=== PATIENT | male | born 1965 | race Caucasian/White ===

== ENCOUNTER 2023-12-25 15:44 | Observation (INO) | payer OTHER, SELFPAY ==
[2023-12-25] VITALS (23 sets, daily range): BP systolic 80–141; BP diastolic 57–129; PULSE 130–142; RESP 29–35; TEMP 37.8–38.4; O2SAT 71–100; BMI 27.4
--- NOTE | ~2023-12-25 | CT_ITS ---
EXAMINATION: CT brain wo con DATE: 12/25/2023 16:19 INDICATION: Altered mental status. TECHNIQUE: Computed tomography (CT) of the head was performed without intravenous contrast. The mA wa s adjusted according to patient size. Iterative reconstruction technique was employed. The dose-lengt h product was 605.33 mGy-cm. COMPARISON: None FINDINGS: There is an isodense subdural hematoma superior to right frontal lobe with maximum thicknes s of 8 mm. There is a left frontotemporal parietal subdural hematoma that is mixed hypodense and isod ense to cervantes matter with maximum thickness of 15 mm. There is mixed low-attenuation and high attenuat ion in inferior left frontal lobe, likely a hemorrhagic contusion. There is 4 mm rightward midline sh ift. There is no acute ischemic infarct or abnormal mass lesion. The ventricles are normal in size. T here is material in the paranasal sinuses. There are erosions and periosteal reaction involving the l eft ethmoid sinuses. The left otomastoid effusion. There is severe osteoarthritis of left temporomand ibular joint. There is periosteal reaction of left mandibular ramus with adjacent soft tissue attenua tion. IMPRESSION: 1. Bilateral subdural hematomas, which may be subacute. 2. Hemorrhagic contusion in inferior left frontal lobe. 3. Periosteal reaction involving left mandibular ramus suspicious for osteomyelitis or less likely ma lignancy. Consider a maxillofacial CT. 4. Left otomastoid effusion. 5. Sinusitis, likely chronic. Reviewed, dictated and finalized at location A. IMPRESSION: 1. Bilateral subdural hematomas, which may be subacute. 2. Hemorrhagic contusion in inferior left frontal lobe. 3. Periosteal reaction involving left mandibular ramus suspicious for osteomyel itis or less likely malignancy. Consider a maxillofacial CT. 4. Left otomastoid effusion. 5. Sinusitis, likely chronic.
--- NOTE | ~2023-12-25 | XR_ITS ---
EXAMINATION: XR chest 1V DATE: 12/25/2023 16:20 INDICATION: Altered mental status. TECHNIQUE: A single frontal view of the chest was obtained. COMPARISON: None. FINDINGS: There is a diffuse interstitial pattern in the lungs. There are airspace opacities in the r ight mid and lower lung zones and all left lung zones. No pleural effusion or pneumothorax. The heart is normal. There is widespread sclerosis of the bones. IMPRESSION: 1. Diffuse lung disease, consistent with pulmonary edema versus pneumonia. 2. Widespread sclerosis of the bones, consistent with metastatic disease. Reviewed, dictated and finalized at location A.
--- NOTE | 2023-12-25 15:55 | ECG_ITS ---
Test Date: 2023-12-25 15:51:40 Measurements Intervals [place] Rate: 141 P: 15 VA: 117 QRS: 3 QRSD: 86 T: 41 QT: 328 QTc: 503 Interpretive Statements SINUS TACHYCARDIA NONSPECIFIC T-WAVE ABNORMALITY ABNORMAL RHYTHM ECG No previous ECG available for comparison Electronically Signed On 12-26-2023 13:11:10 CDT by Ravindra Sweet M.D.
--- NOTE | 2023-12-25 16:00 | ED.GENADULT ---
HPI - General Adult General Chief complaint: Altered Mental Status Stated complaint: AMS Time Seen by Provider: 12/25/23 15:47 History of Present Illness HPI narrative: Patient is a 58-year-old male who presents ER from [facility] in [place] with history of metastatic prostate cancer and history of chronic subdural hemorrhage on the left that has new altered mental status according to EMS. Patient is tachycardic in the 140s. Mouth is very dry. He is attempting to speaking communicate but does not make sense. Left eye does not move and pupil is dilated. There are notes from rehab that showed this may be a chronic issue. No evidence of trauma to the head. No history of trauma. Patient is a full code according to paperwork. According to healthcare POA patient add finished chemotherapy in April, his PSA then markedly elevated in October. He is in found down and is home with unknown down time in late October. He then was hospitalized at [facility]. He then went [facility] before going to his current alf. Patient has known widespread metastatic disease. He is not currently getting any treatments. Related Data Home Medications Medication Instructions Recorded Confirmed acetaminophen 325 mg tablet 650 mg PO QID PRN unknown 11/29/23 11/29/23 lidocaine 4 % topical patch 2 patch topical DAILY PRN unknown 11/29/23 11/29/23 (Aspercreme (lidocaine)) losartan 25 mg tablet 25 mg PO DAILY 11/29/23 11/29/23 prednisone 10 mg tablet 10 mg PO DAILY 11/29/23 11/29/23 sennosides 8.6 mg-docusate sodium 1 tablet PO BID PRN Constipation 11/29/23 11/29/23 50 mg tablet (Senna with Docusate Sodium) Allergies Allergy/AdvReac Type Severity Reaction Status Date / Time No Known Allergies Allergy Verified 11/30/23 08:17 Review of Systems Review of Systems: ROS unobtainable: Yes unobtainable due to medical condition PMFSH Past Medical History Medical History Anemia Bowel and bladder incontinence Cervical osteophyte HTN (hypertension) 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 HEAD: Normocephalic, atraumatic. EYES: Extraocular movements intact in the right eye. No room in the left eye. Dilated pupil on left that is unreactive to light or accommodation. Normal pupil activity on the right. ENT: Dry mucous membranes NECK: Supple. CHEST: Clear to auscultation. No respiratory distress. HEART: tachycardic and regular. Normal peripheral pulses. ABDOMEN: Soft, nontender, nondistended, normal active bowel sounds. EXTREMITIES: Normal range of motion. 1+ edema. SKIN: Warm, dry, no rash. NEURO: Awake alert, follows commands, not oriented. Course Course Emergency Course: I have spoken with Gabriella the patients healthcare POA. I have discussed the seriousness of the patient's illness. We discussed the abnormal CT scan which shows subdural hemorrhages are subacute and possibly bigger than what he had had at [place] 1 month ago. She does not want any intervention to be performed on these. Additionally we discussed the possibly of pneumonia given the fever and hypoxia, we have talked about the significant anemia that he has. She does no
[2023-12-25 16:14] LABS: Mean Corpuscular HGB Conc 30.4 g/dl (32-36); Mean Corpuscular Hemoglobin 27.4 pg (26-34); Mean Corpuscular Volume 90.3 fl (80-100); Mean Platelet Volume 10.7 fl (7.4-10.4); Platelet Count Result 104 k/mm3 (150-375); Red Blood Count 1.86 M/mm3 (4.6-6.20); Red Cell Distribution Width 19.3 % (11.5-14.5); White Blood Count 9.6 K/mm3 (4.5-10.0)
[2023-12-25 16:25] LABS: Alanine Aminotransferase 18 U/L (6-50); Anion Gap 11 mmol/L (4-12); Aspartate Amino Transferase 200 U/L (17-59); Bilirubin,Total 1.3 mg/dL (0.2-1.3); Blood Urea Nitrogen 22 mg/dL (9-20); Calcium 7.4 mg/dL (8.4-10.2); Carbon Dioxide 27 mmol/L (22-30); Chloride 93 mmol/L (98-107); Estimated CRCL calculation 129 ml/min; Estimated Glomerular Filt Rate > 60; Glucose 108 mg/dL (65-110); INR 1.3; Potassium 3.6 mmol/L (3.4-5.0); Prothrombin Time 16.8 Seconds (11.1-14.7); Sodium 131 mmol/L (137-145)
[2023-12-25 16:29] LABS: Lactic Acid Reflex 4.2 mmol/L (0.7-2.0)
[2023-12-25] MEDS: SODIUM CHLORIDE 0.9% IV 2,700 ML/1,000 ML BAG 999 ML IV CONT ×3 (16:35→19:54)
[2023-12-25 16:38] LABS: Hemoglobin 5.1 g/dL (14.0-18.0)
[2023-12-25 16:39] LABS: Alkaline Phosphatase 1290 U/L (38-126); Hematocrit 16.8 % (42.0-52.0)
[2023-12-25 16:46] LABS: Band Neutrophils Percent 2 % (0-6); Eosinophils Absolute Manual 0.19 K/mm3 (0.02-0.50); Eosinophils Percent Manual 2 % (0-4); Lymphocytes Absolute Manual 2.88 K/mm3 (1.1-4.5); Monocytes Absolute Manual 0.67 K/mm3 (0.1-0.90); Monocytes Percent Manual 7 % (3-9); Neutrophils Absolute Manual 5.85 K/mm3 (1.3-6.7); Neutrophils Percent Manual 59 % (46-73); Total Cells Counted 100
[2023-12-25 16:47] LABS: Anisocytosis 2+; Platelet Estimate Decreased (Adequate); Schistocytes None Seen
[2023-12-25 16:48] LABS: Hypochromasia 1+
[2023-12-25 16:56] LABS: Influenza A QL RT-PCR Negative (Negative); Influenza B QL RT-PCR Negative (Negative); RSV RNA, RT-PCR Negative (Negative); SARS-CoV-2 RNA PCR Negative (Negative)
[2023-12-25 17:38] LABS: CRP > 45.0 mg/dL (<1.0)
--- NOTE | 2023-12-25 17:43 | PCCCNOTE ---
Spoke with pt and family present in ED(Mishel Nunez) concerning hospice; also called Gabriella Ruiz who lives out of town but is POA, All in agreement that they would like to explore hospice. [facility] contacted at [phone] and awaiting call back.
--- NOTE | 2023-12-25 18:10 | PC.NURSE ---
multiple attempts have been made with no success at obtaining blood cultures. currently an ultrasound certified RN is at bedside attempting to draw blood cultures so antibiotics can be started.
[2023-12-25 18:26] LABS: Add Urine Microscopic? YES; Appearance Urine Clear (Clear); Bacteria Urine None Seen /hpf; Bilirubin Urine Negative (Negative); Blood Urine Trace (Negative); Color Urine Yellow (Yellow); Glucose Urine UA Negative (Negative); Ketones Urine Negative (Negative); Leukocyte Esterase Ur Negative LEU/UL (Negative); Nitrate Urine Negative (Negative); Protein Urine Trace mg/dL (Negative); RBC Urine 0-2 /hpf (0-2); Specific Grav Ur 1.018 (1.001-1.035); Squamous Epithelial Cell Urine Occasional /hpf (Few); WBC Urine 0-5 /hpf (0-3); pH Urine 5.5 (5.0-9.0)
--- NOTE | 2023-12-25 18:26 | PCCCNOTE ---
Spoke with [facility], paperwork faxed, [employer] salesperson indicated that they would try to get nurse here to evaluate for gip status. They will contact POA for signature.
[2023-12-25 19:13] LABS: Reflex Lactic Acid Yes or No Add Lactic
[2023-12-25] MEDS: AZITHROMYCIN 500 MG/NS 250 ML 500 MG/250 ML BAG 250 MG IVPB (19:41)
[2023-12-25 20:24] LABS: Lactic Acid 3.6 mmol/L (0.7-2.0)
--- NOTE | 2023-12-25 20:38 | PC.NURSE ---
Placed a call out to the on-call RN for [facility] for update.
--- NOTE | 2023-12-25 20:50 | PC.NURSE ---
Per Doyle at [place], consents will likely take overnight to get in from POA. May be best to admit pt overnight to arrange Hospice in am.
--- NOTE | 2023-12-25 20:58 | PM.IMHP ---
H&P: HPI History of Present Illness Date/Time: 12/25/23 20:58 Chief Complaint: ams Narrative: This is a 58-year-old male with past medical history significant for end-stage prostate cancer, subdural hematoma, fall, patient was brought today for evaluation due to altered mental status. Patient found to have him or a contusion in the inferior left frontal lobe, bilateral subdural hematomas on CT imaging of the head. Decision has been made to place the patient in hospice care in the meantime patient has been admitted for comfort care. EXAMINATION: CT brain wo con DATE: 12/25/2023 16:19 INDICATION: Altered mental status. TECHNIQUE: Computed tomography (CT) of the head was performed without intravenous contrast. The mA was adjusted according to patient size. Iterative reconstruction technique was employed. The dose-length product was 605.33 mGy-cm. COMPARISON: None FINDINGS: There is an isodense subdural hematoma superior to right frontal lobe with maximum thickness of 8 mm. There is a left frontotemporal parietal subdural hematoma that is mixed hypodense and isodense to cervantes matter with maximum thickness of 15 mm. There is mixed low-attenuation and high attenuation in inferior left frontal lobe, likely a hemorrhagic contusion. There is 4 mm rightward midline shift. There is no acute ischemic infarct or abnormal mass lesion. The ventricles are normal in size. There is material in the paranasal sinuses. There are erosions and periosteal reaction involving the left ethmoid sinuses. The left otomastoid effusion. 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 There is periosteal reaction of left mandibular ramus with adjacent soft tissue attenuation. IMPRESSION: 1. Bilateral subdural hematomas, which may be subacute. 2. Hemorrhagic contusion in inferior left frontal lobe. 3. Periosteal reaction involving left mandibular ramus suspicious for osteomyelitis or less likely malignancy. Consider a maxillofacial CT. 4. Left otomastoid effusion. 5. Sinusitis, likely chronic. EXAMINATION: XR chest 1V DATE: 12/25/2023 16:20 INDICATION: Altered mental status. TECHNIQUE: A single frontal view of the chest was obtained. COMPARISON: None. FINDINGS: There is a diffuse interstitial pattern in the lungs. There are airspace opacities in the right mid and lower lung zones and all left lung zones. No pleural effusion or pneumothorax. The heart is normal. There is widespread sclerosis of the bones. IMPRESSION: 1. Diffuse lung disease, consistent with pulmonary edema versus pneumonia. 2. Widespread sclerosis of the bones, consistent with metastatic disease. 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 Social History Social History Years smoked: 25 Smoking status: Former smoker Smoking end date: 04/29/08 Alcohol intake: unknown Substance use: unknown Do You Feel Safe in your Home?: Yes Lack of Transportation: No Lack of Food: Never True Current Housing: I Have Housing Concerned About Future Housing: No Difficulty Paying Gas/Electric Bills: No Difficulty Paying for Meds: No Currently Unemployed: YES Education: High School Diploma/GED Difficulty w/ Childcare or Family Care: No Spiritual care concerns: No Meds Home Medications and Allergies Home Medications Medication Instructions Recorded Confirmed Type acetaminophen 325 mg tablet 650 mg PO QID PRN unknown 11/29/23 11/29/23 History lidocaine 4 % topical patch 2 patch topical DAILY PRN unknown 11/29/23 11/29/23 History (Aspercreme (lidocaine)) losartan 25 mg tablet 25 mg P
--- NOTE | 2023-12-25 22:16 | PC.NURSE ---
Pt arrived to room 328 via stretcher from ER
[2023-12-25] MEDS: LACTATED RINGERS 1,000 ML 125 ML IV CONT (23:01)
[2023-12-26] VITALS: PULSE 130; RESP 26; O2SAT 100
[2023-12-26] MEDS: LACTATED RINGERS 1,000 ML 125 ML IV CONT (06:24)
[2023-12-26 07:45] VITALS: O2SAT 94
[2023-12-26 08:00] VITALS: BP 115/60; PULSE 126; RESP 22; TEMP 36.9; O2SAT 100
--- NOTE | 2023-12-26 10:02 | PM.IMPN ---
Progress Note: A&P Assessment and Plan (1) Subdural hemorrhage: Code(s): I62.00 - Nontraumatic subdural hemorrhage, unspecified Status: Acute Assessment and Plan: comfort care measures only (2) Prostate cancer metastatic to bone: Code(s): C61 - Malignant neoplasm of prostate; C79.51 - Secondary malignant neoplasm of bone Status: Acute Assessment and Plan: Comfort care measures only hospice care (3) Traumatic subarachnoid hematoma with loss of consciousness: Code(s): S06.6X9A - Traumatic subarachnoid hemorrhage with loss of consciousness of unspecified duration, initial encounter Status: Acute Assessment and Plan: comfort care Plan will decrease IV fluids from 125 to 25 to avoid fluid overload. Time Spent With Patient Time with patient: Greater than 35 minutes Subjective Date/time seen: 12/26/23 10:02 Interval history: ams Narrative retrieved from H/P: This is a 58-year-old male with past medical history significant for end-stage prostate cancer, subdural hematoma, fall, patient was brought today for evaluation due to altered mental status. Patient found to have him or a contusion in the inferior left frontal lobe, bilateral subdural hematomas on CT imaging of the head. Decision has been made to place the patient in hospice care in the meantime patient has been admitted for comfort care. 12/25- care coordination consult for hospice added- as based on ed note- family had been discussing it. Iv fluids and antibiotics are ok with family- so those will be continued at this time. pt is seen and examined- not much interactions- pt is very drowsy. RR a lot slower than it wa sper niece and pt looks more comfortable. Review of Systems Review of Systems: ROS unobtainable: Yes unobtainable due to mental status Exam Narrative: lying in stretcher Const: General: comfortable, no acute distress, well developed, lethargic, average body habitus and other (terminal appearing) Nutritional Appearance: average body habitus Orientation/consciousness: lethargic Other: generalized pallor HENMT: Head: normal to inspection, normocephalic and atraumatic Ears: hearing grossly normal bilaterally Face/Nose/Sinus: normal facial exam Face and sinus: normal facial exam Eyes: Pupils: Pupils anisocoria, Dilated pupils on the left and Pupil size comments on the right 2 and on the left 4 EOM: EOM abnormal (L eye) and movement deficit Other: L facial nerve paralysis Neck: Neck: full ROM, no lymphadenopathy and no JVD Thyroid: thyroid normal Lymphatic: no lymphadenopathy noted Resp: Effort & Inspection: normal respiratory effort and able to speak in complete sentences Auscultation: clear to auscultation bilaterally Cardio: Jugular venous distension: no JVD Rate: tachycardic Rhythm: regular rhythm Heart sounds: S1 normal heart sound present and S2 normal heart sound present : General: Yes deferred Skin: General skin exam: dry skin, jaundice and turgor decreased Rashes: no rashes Wounds: no wounds Neuro: General: Unable to assess gait Cranial nerves: Yes Other cranial nerve findings present (L facial paralysis) Cognition (Neuro): abnormal cognition Gait exam (Neuro): Unable to assess gait Extrem: General: normal to inspection, full ROM, no joint enlargement and no pedal edema Objective Data Vital Signs Vital Signs: Vital Signs - 24 hr 12/25/23 15:46 12/25/23 16:35 12/25/23 18:52 Temperature 100.6 F H Pulse Rate 140 H 133 H Respiratory Rate 30 H 29 H Blood Pressure 107/69 Pulse Oximetry 100 97 Oxygen Delivery Nasal Cannula Nasal Cannula Oxygen Flow Rate 2 4 12/25/23 19:09 12/25/23 19:15 12/25/23 19:17 Temperature Pulse Rate 136 H 135 H 133 H Respiratory Rate 29 H 34 H 30 H Blood Pressure 111/67 Pulse Oximetry Oxygen Delivery Oxygen Flow Rate 12/25/23 19:55 12/25/23 20:00 12/25/23 20:01 Temperature Pulse
[2023-12-26] MEDS: LACTATED RINGERS 1,000 ML 25 ML IV CONT (12:08)
[2023-12-26 20:00] VITALS: BP 111/64; PULSE 123; RESP 24; TEMP 37.2; O2SAT 98
[2023-12-26] MEDS: AZITHROMYCIN 500 MG/NS 250 ML 500 MG/250 ML BAG 250 MG IVPB (20:52)
[2023-12-27 08:00] VITALS: BP 110/57; PULSE 127; RESP 20; TEMP 37.4; O2SAT 100; O2SAT 95
[2023-12-27] MEDS: MORPHINE SULFATE (*CRX) 4 MG/ML INJ IV PUSH (09:09)
--- NOTE | 2023-12-27 10:04 | PM.DS ---
DS: Admitting Diagnosis Discharge Date 12/26 Admitting Diagnosis ams DS: Discharge Diagnosis Discharge Diagnosis (1) Subdural hemorrhage: Code(s): I62.00 - Nontraumatic subdural hemorrhage, unspecified Status: Acute Assessment and Plan: comfort care measures only (2) Prostate cancer metastatic to bone: Code(s): C61 - Malignant neoplasm of prostate; C79.51 - Secondary malignant neoplasm of bone Status: Acute Assessment and Plan: Comfort care measures only hospice care (3) Traumatic subarachnoid hematoma with loss of consciousness: Code(s): S06.6X9A - Traumatic subarachnoid hemorrhage with loss of consciousness of unspecified duration, initial encounter Status: Acute Assessment and Plan: comfort care Plan will decrease IV fluids from 125 to 25 to avoid fluid overload. DS: Summary Hospital Course Hospital Course: Narrative retrieved from H/P: This is a 58-year-old male with past medical history significant for end-stage prostate cancer, subdural hematoma, fall, patient was brought today for evaluation due to altered mental status. Patient found to have him or a contusion in the inferior left frontal lobe, bilateral subdural hematomas on CT imaging of the head. Decision has been made to place the patient in hospice care in the meantime patient has been admitted for comfort care. 12/25- care coordination consult for hospice added- as based on ed note- family had been discussing it. Iv fluids and antibiotics are ok with family- so those will be continued at this time. pt is seen and examined- not much interactions- pt is very drowsy. RR a lot slower than it was per niece and pt looks more comfortable. 12/26 Spoke with ASHLEIGH Quiroz- she is ok with stopping antibiotics. Hospice cannot take him while here but will follow him once discharged. Working with care coordination to facilitate discharge today to hospice. Status at Discharge Functional status at discharge: bed bound Overall status at discharge: other Time Spent with Patient Time attestation: Total time spent providing and/or coordinating discharge services: Time spent: Greater than 30 minutes Exam Narrative: lying in stretcher Const: General: comfortable, no acute distress, well developed, lethargic, average body habitus and other (terminal appearing) Nutritional Appearance: average body habitus Orientation/consciousness: lethargic Other: generalized pallor HENMT: Head: normal to inspection, normocephalic and atraumatic Ears: hearing grossly normal bilaterally Face/Nose/Sinus: normal facial exam Eyes: Pupils: Pupils anisocoria, Dilated pupils on the left and Pupil size comments on the right 2 and on the left 4 EOM: EOM abnormal (L eye) and movement deficit Other: L facial nerve paralysis Neck: Neck: no lymphadenopathy and no JVD Thyroid: thyroid normal Lymphatic: no lymphadenopathy noted Resp: Effort & Inspection: normal respiratory effort Other: coarse Cardio: Jugular venous distension: no JVD Rate: tachycardic Rhythm: regular rhythm Heart sounds: S1 normal heart sound present and S2 normal heart sound present : General: Yes deferred Skin: General skin exam: dry skin, jaundice and turgor decreased Rashes: no rashes Wounds: no wounds Neuro: General: Unable to assess gait Cranial nerves: Yes Other cranial nerve findings present (L facial paralysis) Cognition (Neuro): abnormal cognition Gait exam (Neuro): Unable to assess gait Extrem: General: normal to inspection, no joint enlargement and no pedal edema DS: Data Data Completed and Pending Completed studies during hospitalization: na Labs on day of discharge: Preliminary micro results at discharge 12/25/23 18:59 Blood Culture - Preliminary Blood Gram positive cocci cluster is 12/25/23 18:46 Blood Culture - Preliminary Blood Discharge Plan Discharge Discharging Clinician: Krystal Lee
--- NOTE | 2023-12-27 14:07 | PM.IMPN ---
Progress Note: A&P Assessment and Plan (1) Subdural hemorrhage: Code(s): I62.00 - Nontraumatic subdural hemorrhage, unspecified Status: Acute Assessment and Plan: comfort care measures only (2) Prostate cancer metastatic to bone: Code(s): C61 - Malignant neoplasm of prostate; C79.51 - Secondary malignant neoplasm of bone Status: Acute Assessment and Plan: Comfort care measures only hospice care (3) Traumatic subarachnoid hematoma with loss of consciousness: Code(s): S06.6X9A - Traumatic subarachnoid hemorrhage with loss of consciousness of unspecified duration, initial encounter Status: Acute Assessment and Plan: comfort care Plan stopped fluids, stopped antibiotics per POA DAUGHTER WISHES Time Spent With Patient Time with patient: Greater than 35 minutes Subjective Date/time seen: 12/27/23 14:07 Interval history: ams Narrative retrieved from H/P: This is a 58-year-old male with past medical history significant for end-stage prostate cancer, subdural hematoma, fall, patient was brought today for evaluation due to altered mental status. Patient found to have him or a contusion in the inferior left frontal lobe, bilateral subdural hematomas on CT imaging of the head. Decision has been made to place the patient in hospice care in the meantime patient has been admitted for comfort care. 12/25- care coordination consult for hospice added- as based on ed note- family had been discussing it. Iv fluids and antibiotics are ok with family- so those will be continued at this time. pt is seen and examined- not much interactions- pt is very drowsy. RR a lot slower than it wa sper nidanielle and pt looks more comfortable. 12/26 Spoke with ASHLEIGH Quiroz- she is ok with stopping antibiotics. Hospice cannot take him while here but will follow him once discharged. Working with care coordination to facilitate discharge today to hospice. Review of Systems Review of Systems: ROS unobtainable: Yes unobtainable due to mental status Exam Narrative: lying in stretcher Const: General: comfortable, no acute distress, well developed, lethargic, average body habitus and other (terminal appearing) Nutritional Appearance: average body habitus Orientation/consciousness: lethargic Other: generalized pallor HENMT: Head: normal to inspection, normocephalic and atraumatic Ears: hearing grossly normal bilaterally Face/Nose/Sinus: normal facial exam Face and sinus: normal facial exam Eyes: Pupils: Pupils anisocoria, Dilated pupils on the left and Pupil size comments on the right 2 and on the left 4 EOM: EOM abnormal (L eye) and movement deficit Other: L facial nerve paralysis Neck: Neck: full ROM, no lymphadenopathy and no JVD Thyroid: thyroid normal Lymphatic: no lymphadenopathy noted Resp: Effort & Inspection: normal respiratory effort and able to speak in complete sentences Auscultation: clear to auscultation bilaterally Cardio: Jugular venous distension: no JVD Rate: tachycardic Rhythm: regular rhythm Heart sounds: S1 normal heart sound present and S2 normal heart sound present : General: Yes deferred Skin: General skin exam: dry skin, jaundice and turgor decreased Rashes: no rashes Wounds: no wounds Neuro: General: Unable to assess gait Cranial nerves: Yes Other cranial nerve findings present (L facial paralysis) Cognition (Neuro): abnormal cognition Gait exam (Neuro): Unable to assess gait Extrem: General: normal to inspection, full ROM, no joint enlargement and no pedal edema Objective Data Vital Signs Vital Signs: Vital Signs - 24 hr 12/26/23 20:00 12/26/23 20:00 12/27/23 08:00 Temperature 99.0 F 99.4 F Pulse Rate 123 H 127 H Respiratory Rate 24 H 20 Blood Pressure 111/64 110/57 L Pulse Oximetry 98 100 Oxygen Delivery Room Air Oxygen Flow Rate 12/27/23 08:00 Temperature Pulse Rate Respiratory Rate Blood Pressure Pul
== END 2023-12-27 18:58 | disposition hospice, home (50) ==
LOC: ANHED 21:16 → ANH3MEDSUR 21:28
PROVIDERS: Admitting Provider Internal Medicine; Emergency Provider Emergency Medicine; PCP Family Medicine; Visit Provider Internal Medicine
DX: I62.02 Nontraumatic subacute subdural hemorrhage (principal); C61 Malignant neoplasm of prostate; C79.51 Secondary malignant neoplasm of bone; Z51.5 Encounter for palliative care; I10 Essential (primary) hypertension; R09.02 Hypoxemia; D64.9 Anemia, unspecified; Z87.891 Personal history of nicotine dependence
CPT/HCPCS: 36415; 70450; 71045; 80053; 81001; 83605; 85025; 85610; 85730; 86140; 86850; 86900; 86901; 87040; 87077; 87181; 87637; 93005; 96361; 96365; 96366; 96367; 96374; 99285; G0378; J0456; J0696; J2270; J7030; J7120